=== PATIENT | female | born 1985 | race Caucasian/White ===

== ENCOUNTER 2018-12-02 06:55 | Emergency (ER) | payer OTHER, SELFPAY ==
[2018-12-02 06:56] VITALS: BP 152/96; PULSE 89; RESP 20; TEMP 36.7; O2SAT 98; BMI 40.0
--- NOTE | 2018-12-02 07:07 | ED.VISSUMM ---
- ER Visit Summary Date of Service: 12/02/18 Chief Complaint: Dental pain History of Present Illness: The patient is a 33 F with pain in her left maxillary molar for the past couple days. Worse last night. Denies swelling. Denies fevers, nausea, or systemic symptoms. She does have a dentist but has not been seen for a few months. She is taking ibuprofen with minimal relief. Physical Examination: Afebrile and vital signs unremarkable. Tenderness to palpation to the left maxillary third molar and gum tissue. Inspection is unremarkable. No swelling or abscess. No trismus. No tongue elevation. Airway intact. No lymphadenopathy. No meningeal signs. Skin appears normal. Cranial nerves normal. Test Results: As above Emergency Department Course and Treatment: We will treat with Samy Mccray Motrin. I checked her OARRS, and will prescribe a short course of Percocet for breakthrough pain. Call dental today for follow-up. Treatment Plan: As above Disposition: Discharge Impression: 1. Dental pain This note was generated with [employer] dictation software. It may contain incorrect words, spelling, and punctuation that were not noted in review of the chart prior to signing ED Disposition - Plan for ED Patient: Chief Complaint: Dental Referrals: NOT,DEFINED [Primary Care Provider] -
--- NOTE | 2018-12-02 07:09 | ED.DEP ---
ED Disposition - Plan for ED Patient: Chief Complaint: Dental Instructions: ED Tooth Pain Prescriptions: Oxycodone HCl/Acetaminophen [Percocet 5/325] 1 tab PO Q6H PRN PRN 2 Days #8 tab PRN Reason: Pain Penicillin V Potassium 500 mg PO 4X/DAY #40 tab Additional Instructions: call your dentist today for follow up
[2018-12-02] MEDS: Penicillin Vk 250 MG Tablet 500 MG PO (07:29)
== END 2018-12-02 07:31 | disposition home or self-care (01) ==
PROVIDERS: Emergency Provider Emergency Medicine
DX: K08.89 Other specified disorders of teeth and supporting structures (principal); Z72.0 Tobacco use; F31.9 Bipolar disorder, unspecified
CPT/HCPCS: 99283

== ENCOUNTER 2019-03-17 08:41 | Emergency (ER) | payer OTHER, SELFPAY ==
[2019-03-17 08:41] VITALS: BP 122/68; PULSE 111; RESP 16; TEMP 37.1; O2SAT 98; BMI 41.5
--- NOTE | 2019-03-17 08:57 | ED.DCSUM_ITS ---
- ER Visit Summary Date of Service: 03/17/19 Chief Complaint: Sore throat History of Present Illness: The patient is a 33 F who presents with a sore throat that has been getting worse over the past 2 days. Patient states she has had a fever at home of 101.5. Patient denies any cough. Patient states her p ain is worse with swallowing, eating, and drinking. Patient describes her pain is sharp. Patient also admits to headache. Patient also admits to myalgias, nausea and diarrhea. Patient denies any vomiting. Patient states she went to an urgent care yesterday and had rapid strep and rapid flu swabs which were negative. Physical Examination: Vital signs are stable except for mild tachycardia of 111. Patient is afebrile here. Patient is in no acute distress. Oral mucosa is pink and moist. Oropharynx shows tonsillar erythema and exudate. Neck is supple. Trachea is midline. There is tender anterior cervical lymphadenopathy. Heart was regular rate and rhythm. Lungs are clear and equal bilaterally. Cranial nerves II through XII are intact. There are no focal motor or sensory deficits noted. Test Results: Patient met 3 out of 4 Centor criteria, therefore a rapid strep was obtained. This was negative. A CBC, basic metabolic profile, and CT scan of the soft tissue neck with IV contrast was obtained. CBC did show a leukocytosis of 16.3 with 83.9% neutrophils and an absolute neutrophil count of 13.7. Basic metabolic profile was normal. CT scan of the soft tissue neck was obtained. There is no abscess noted. There is some swelling of the area epiglottic folds but no airway compromise or epiglottitis. Emergency Department Course and Treatment: Patient was given IV Decadron. Given the leukocytosis and left shift, we will cover the patient with amoxicillin. Patient was advised that this could still be a viral etiology and that the antibiotics may not improve her symptoms. Patient was instructed to continue Tylenol and ibuprofen as needed for any pain. Patient was given a prescription for a short course of prednisone as well. Patient was instructed to follow-up with her primary care physician in 5-7 days. Patient understood and was agreeable with the plan. All questions were answered. Disposition: Discharge home Impression: Pharyngitis This note was generated with [employer] dictation software. It may contain incorrect words, spelling, and punctuation that were not noted in review of the chart prior to signing ED Disposition - Plan for ED Patient: Disposition: Home or Assisted Living Diagnosis: Pharyngitis Instructions: ED Strep Pharyngitis Poss Prescriptions: predniSONE tablet 60 mg PO DAILY #15 tab Amoxicillin 500 mg PO TID #30 tab Referrals: Care Physician,No Primary [Primary Care Provider] -
--- NOTE | 2019-03-17 09:43 | CT_ITS ---
STUDY: CT SOFT TISSUE NECK WITH CONTRAST REASON FOR EXAM: Female, 33 years old. History of sore throat for 2 days. RADIATION DOSAGE (If Supplied By Facility): CTDIvol = ( 22.79 ) mGy, DLP = ( 631.73 ) mGycm TECHNIQUE: The patient was scanned in a multi-detector CT scanner. High resolution transaxial imaging was performed following intravenous administration of 75CC IV Isovue 300. Sagittal and coronal images were reconstructed. Individualized dose optimization techniques were used for this CT. COMPARISON: None. FINDINGS: Normal bilateral parotid glands. Normal bilateral cement based materials pump tender spaces. Normal bilateral parapharyngeal spaces. Normal bilateral carotid spaces. Normal bilateral sublingual and submandibular glands and spaces. Normal visualized nasopharynx. Normal retropharyngeal space. Normal perivertebral space. Normal visualized bilateral faucial tonsils. There is a mildly lobulated prominence of the tongue base, but without a discrete mass, suggestive of lymphoid hyperplasia. Mucosal disease cannot be excluded, and direct visualization is recommended. The visualized cervical lymph nodes (levels I-) are within normal size limits, and maintain normal morphology. There is no demonstrated solid or cystic mass lesion. There is no abnormal contrast enhancement. Normal epiglottis, bilateral vallecula and hypopharynx. The pre-epiglottic and paraglottic adipose spaces are normal. There is a thickening of the aryepiglottic folds more prominent on the left side measuring 2 cm x 2.1 cm. Normal subglottic trachea. Normal bilateral lobes of the thyroid gland. Normal visualized pulmonary apices. Normal visualized paranasal sinuses. Normal visualized cervical spine. CT/Soft Tissue Neck WITH Contrast IMPRESSION: Thickening of the aryepiglottic folds more prominent on the left side with a 2 cm x 2.1 cm nodular thickening. Prominence of the lymph tissue at the base of the tongue. Electronically Signed: Adan Ramsay, at 11:12 EDT , Service support ,
[2019-03-17 10:17] LABS: Anion Gap 6 (5-15); BUN 12 mg/dL (7-18); BUN/Creat Ratio 16.2 RATIO (10-20); Calcium,Total 8.6 mg/dL (8.5-10.1); Chloride 106 mmol/L (98-107); Creatinine, Serum 0.74 mg/dL (0.55-1.02); EST Glomerular Filtration Rate 95 mL/min (>60); Est Glom Filt Rate - Afr Amer 115 mL/min (>60); Estimated Creatinine Clearance 95.48 ml/min; Glucose 97 mg/dL (74-106); Potassium 3.8 mmol/L (3.5-5.1); Sodium Level 138 mmol/L (136-145)
[2019-03-17 10:24] LABS: Absolute Lymphocyte Count 1.42 X10^3/ul (0.83-4.51); Absolute Neutrophil Count 13.7 X10^3/uL (2.0-7.7); Basophil# 0.02 X10^3/uL; Basophil% 0.1 % (0-1); Eosinophil# 0.03 X10^3/uL; Eosinophils% 0.2 % (0-5); Hematocrit 36.4 % (37-47); Hemoglobin 12.1 g/dl (12.0-15.0); Lymphocyte # 1.42 X10^3/ul (4.0); Lymphocyte % 8.7 % (19-41); Mean Corp Hgb Conc 33.2 g/gl (32-36); Mean Corpuscular Volume 90.1 fL (81-99); Mean Platelet Vol. 10.2 fl (6.2-12.0); Monocyte# 1.12 X10^3/uL; Monocyte% 6.9 % (0-10); Neutrophil # 13.71 X10^3/uL (2.7-7.7); Neutrophil % 83.9 % (47-70); Platelet Count 236 K/mm3 (150-450); RBC Distribution Width CV 14.1 % (11.6-14.6); RBC Distribution Width SD 46.6 fl (35.1-43.9); Red Blood Count 4.04 M/mm3 (4.2-5.4); White Blood Count 16.3 K/mm3 (4.4-11.0)
[2019-03-17 10:25] LABS: POSITIVE COUNT NO; POSITIVE DIFFERENTIAL NO; POSITIVE MORPHOLOGY NO
[2019-03-17 10:57] VITALS: BP 99/63; PULSE 93; RESP 12; O2SAT 97
[2019-03-17 12:00] VITALS: BP 107/89; PULSE 84; RESP 12; RESP 14; O2SAT 99
== END 2019-03-17 12:04 | disposition home or self-care (01) ==
PROVIDERS: Emergency Provider Emergency Medicine
DX: J02.9 Acute pharyngitis, unspecified (principal); R51 Headache; R11.0 Nausea; R19.7 Diarrhea, unspecified; R50.9 Fever, unspecified; F17.210 Nicotine dependence, cigarettes, uncomplicated
CPT/HCPCS: 70491; 80048; 85025; 87880; 96374; 99284; Q9967; A4216

== ENCOUNTER 2019-04-27 04:14 | Emergency (ER) | payer OTHER, SELFPAY ==
[2019-04-27 04:16] VITALS: BP 133/91; PULSE 74; PULSE 75; RESP 14; RESP 16; TEMP 36.6; TEMP 36.7; O2SAT 98; BMI 40.7
--- NOTE | 2019-04-27 04:23 | ED.DEP ---
ED Disposition - Plan for ED Patient: Instructions: ED Tooth Pain Prescriptions: Naproxen [Naprosyn] 500 mg PO BID PRN #20 tablet Penicillin V Potassium 500 mg PO 4X/DAY #40 tablet Referrals: [facility] Doctor,Out of [Primary Care Provider] -
--- NOTE | 2019-04-27 04:27 | ED.VISSUMM ---
- ER Visit Summary Date of Service: 04/27/19 Chief Complaint: Dental pain History of Present Illness: The patient is a 34 F presenting with dental pain. She states this started a few days ago and worsened yesterday. She has been taking ibuprofen at home. She does not currently have a dentist. She denies fever. She states she it has felt like she has had intermittent swelling. Denies other complaints Physical Examination: Vitals are stable. Patient is afebrile. Alert no acute distress. HEENT exam left upper molar tenderness. No surrounding fluctuance. No sublingual edema Neck is supple. Lungs are clear and equal bilaterally. Heart is regular rate and rhythm. Skin is warm and dry. Remainder of exam is unremarkable. Emergency Department Course and Treatment: Patient was given [place] x1 in the ED. She was given prescriptions for penicillin and Naprosyn. Advised to follow-up with a dentist. She is given a dental referral list. Advised to return to ED for worsening complaints. Disposition: Discharge home Impression: Odontalgia This note was generated with [employer] dictation software. It may contain incorrect words, spelling, and punctuation that were not noted in review of the chart prior to signing ED Disposition - Plan for ED Patient: Instructions: ED Tooth Pain Prescriptions: Naproxen [Naprosyn] 500 mg PO BID PRN #20 tablet Penicillin V Potassium 500 mg PO 4X/DAY #40 tablet Referrals: Meera Moody,Out of [Primary Care Provider] -
[2019-04-27 04:28] VITALS: BP 122/74; PULSE 70; RESP 15; O2SAT 98
[2019-04-27] MEDS: Penicillin Vk 250 MG Tablet 500 MG PO (04:33)
[2019-04-27] MEDS: HYDROcodone Bitartrate/Apap 5/325 Tablet PO (04:33)
== END 2019-04-27 04:35 | disposition home or self-care (01) ==
PROVIDERS: Emergency Provider Emergency Medicine
DX: K08.89 Other specified disorders of teeth and supporting structures (principal); Z72.0 Tobacco use
CPT/HCPCS: 99283

== ENCOUNTER 2021-03-26 20:09 | Observation (INO) | payer OTHER, SELFPAY ==
[2021-03-26] VITALS (9 sets, daily range): BP systolic 90–123; BP diastolic 59–73; PULSE 60–83; RESP 12–22; TEMP 35.9–36.8; O2SAT 95–100; BMI 42.0; BMI 41.7
--- NOTE | 2021-03-26 20:22 | EKG12_ITS ---
Test Reason : REPEAT X 2 Blood Pressure : / mmHG Vent. Rate : 066 BPM Atrial Rate : 066 BPM P-R Int : 152 ms QRS Dur : 088 ms QT Int : 442 ms P-R-T Axes : 059 023 070 degrees QTc Int : 463 ms Normal sinus rhythm Nonspecific T wave abnormality Prolonged QT Abnormal ECG Confirmed by REID DUMONT, RENETTA ([id number]), map editor ARSH LLANOS ([id number]) on 03/28/2021 9:14:06 AM Referred By: VARGAS Confirmed By:RENETTA MATHEWS MD
[2021-03-26 20:29] LABS: Absolute Lymphocyte Count 3.67 X10^3/uL (0.83-4.51); Absolute Neutrophil Count 6.7 X10^3/uL (2.0-7.7); Basophil# 0.04 X10^3/uL; Basophil% 0.4 % (0-1); Eosinophil# 0.22 X10^3/uL; Eosinophils% 1.9 % (0-5); Hematocrit 35.8 % (37-47); Hemoglobin 11.9 g/dL (12.0-15.0); Lymphocyte # 3.67 X10^3/ul (0.83-4.51); Lymphocyte % 32.4 % (19-41); Mean Corp Hgb Conc 33.2 g/dL (32-36); Mean Corpuscular Hgb 30.8 pg (27.0-32.0); Mean Corpuscular Volume 92.7 fL (81-99); Mean Platelet Vol. 10.1 fl (6.2-12.0); Monocyte# 0.63 X10^3/uL; Monocyte% 5.6 % (0-10); NRBC Flagged by Analyzer 0 % (0-5); Neutrophil # 6.73 X10^3/uL (2.7-7.7); Neutrophil % 59.4 % (47-70); Platelet Count 315 K/mm3 (150-450); RBC Distribution Width CV 14.2 % (11.6-14.6); RBC Distribution Width SD 48.3 fl (35.1-43.9); Red Blood Count 3.86 M/mm3 (4.2-5.4); White Blood Count 11.3 K/mm3 (4.4-11.0)
--- NOTE | 2021-03-26 20:30 | ED.VIS.CHEST ---
HPI History of Present Illness Chief Complaint: Chest Pain PFSH PFSH Home Medications aripiprazole 10 mg PO DAILY 12/02/18 [History Last Taken Unknown] citalopram 30 mg PO DAILY 12/02/18 [History Last Taken Unknown] penicillin V potassium 500 mg PO 4X/DAY #40 tab 12/02/18 [Rx Last Taken Unknown] amoxicillin 500 mg PO TID #30 tab 03/17/19 [Rx Last Taken Unknown] prednisone 60 mg PO DAILY #15 tab 03/17/19 [Rx Last Taken Unknown] naproxen 500 mg PO BID PRN #20 tab 04/27/19 [Rx Last Taken Unknown] penicillin V potassium 500 mg PO 4X/DAY #40 tab 04/27/19 [Rx Last Taken Unknown] Allergy/AdvReac Type Severity Reaction Status Date / Time ciprofloxacin [From Cipro] Allergy Rash Verified 03/26/21 20:34 lamotrigine [From Lamictal] Allergy Rash Verified 03/26/21 20:34 Social History Smoking Status: Current every day smoker ROS ROS ED Constitutional Constitutional ED: Denies fever(s) Eyes Eyes: Reports none ENT ENT ED: Denies ear pain Cardiovascular Cardiovascular: Reports as per HPI and other Respiratory/Chest Respiratory/Chest: Reports other; Denies sputum Gastrointestinal Gastrointestinal: Denies abdominal pain Genitourinary Genitourinary ED: Denies dysuria Musculoskeletal Musculoskeletal: Denies myalgias Integumentary Denies rash Neurologic Neurologic: Denies headache(s) Psychiatric Psychiatric: Denies depression Endocrine Endocrinology: Denies polyuria Hematologic/Lymphatic Hematologic/Lymphatic: Denies easy bruising Allergic/Immunologic Allergic/Immunologic ED: Denies mouth swelling, tongue swelling or urticaria EXAM Physical Exam Const Vital Signs: 03/26/21 20:10 03/26/21 20:22 03/26/21 20:26 Temperature 97.2 F L Temperature Source Temporal Pulse Rate 83 77 Respiratory Rate 16 16 Blood Pressure 123/73 H 105/71 Blood Pressure Mean 89 82 Pulse Ox 97 100 Oxygen Delivery Method Room Air Room Air Room Air 03/26/21 21:09 03/26/21 21:20 Temperature Temperature Source Pulse Rate 71 71 Respiratory Rate 22 H Blood Pressure 101/59 L 101/59 L Blood Pressure Mean 73 Pulse Ox 95 Oxygen Delivery Method Room Air Positive well nourished and well developed General Appearance ED: well developed HEENT normocephalic and atraumatic Eyes PERRL and EOMs intact bilaterally Neck no lymphadenopathy, supple and no JVD Chest Wall inspection of chest normal and palpation of chest normal Chest Narrative: No acute normality seen on chest wall exam. No reproducible pain. No crepitus. No signs of trauma. Resp normal respiratory effort and clear to auscultation bilaterally Cardio regular rate and regular rhythm GI normal to inspection, nondistended, normoactive bowel sounds, soft to palpation, non-tender, non-distended and no masses Back/Spine no CVA tenderness Extremity normal to inspection Extremity Narrative: Nontender. No calf tenderness. No cords. No edema. General Extremety ED: Negative for edema, pulses abnormal or tenderness General Extremity: Negative for edema or pulses abnormal Neuro oriented x3 and CN's II-XII intact bilaterally Sensorium / Orientation: awake and alert Motor Exam: strength 5/5 throughout Psych mental status grossly normal Skin no rashes or lesions noted Heart Score History: Moderately Suspicious ECG: Normal Age: </= 45 years Risk Factors: 1 or 2 Risk Factors Troponin: </= Normal Limit Score: 2 MDM MDM MDM Narrative Medical decision making narrative: Cardiac disease. She is a smoker. No recent exertional chest pain or shortness of breath. Today around 3:30 in the afternoon she awoke with midsternal chest pain. Radiating to the right. No shortness of breath but she does have worse pain with a deep breath. She is never had a DVT nor PE. No risk factors. Father had cardiac disease and prior pulmonary emboli. She is on no control. No recent travel, surgery or immobilization. No calf pain or swelling. No hemoptysis. CBC unremarkable. BMP normal. Normal troponin. D-dimer normal. Chest x-ray 1 view interpreted by myself. normal cardiac silhouette and no infiltrate. No pneumothorax. Lab Data Attestation: I reviewed the patient's lab results. Labs: Laboratory Results - last 24 hr 03/26/21 03/26/21 03/26/21 20:20 20:20 20:20 WBC 11.3 H RBC 3.86 L Hgb 11.9 L Hct 35.8 L MCV 92.7 MCH 30.8 MCHC 33.2 RDW Std Deviation 48.3 H RDW Coeff of Jhonathan 14.2 Plt Count 315 MPV 10.1 Immature Gran % (Auto) 0.300 Neut % (Auto) 59.4 Lymph % (Auto) 32.4 [place] % (Auto) 5.6 Eos % (Auto) 1.9 Baso % (Auto) 0.4 Absolute Neuts (auto) 6.7 Absolute Lymphs (auto) 3.67 Nucleated RBC % 0 D-Dimer Quant (PE/DVT) 0.35 Sodium 138 Potassium 3.6 Chloride 110 H Carbon Dioxide 22.0 Anion Gap 6 BUN 15 Creatinine 0.84 Estim Creat Clear Calc 79.18 Est GFR (MDRD) Af Amer 97 Est GFR (MDRD) Non-Af 80 BUN/Creatinine Ratio 17.8 Glucose 96 Calcium 8.7 Troponin I < 0.015 Radiography Chest X-Ray - ED: 1 View, Read by ED Physician, Normal, Heart, Lungs, Mediastinum, Bony Structures and No Acute Disease Diagnostic Testing: Radiology Impression Chest X-Ray 03/26/21 20:43 IMPRESSION: Normal x-ray examination of the chest. Electronically Signed: Rinku Sanchez DO at 21:38 EDT Tel [phone], Service support , EKG Repeat EKG : Attestation: I personally reviewed and interpreted this EKG as follows: Interpretation: Sinus Rhythm and No Acute Injury Pattern Comments: Second EKG was unchanged first. Again no signs of acute KS nor ischemia. Prior: Unchanged EKG # 3: Attestation: I personally reviewed and interpreted this EKG as follows: Interpretation: Sinus Rhythm and No Acute Injury Pattern Comments: Normal sinus rhythm rate of 66. Treatment and Re-Evaluation Comments:: Patient was given nitro paste and her pain resolved. The patient's pain being nonreproducible and improving with nitroglycerin in spite of negative work-up I will speak to the hospitalist about observation status admission for further cardiac evaluation. Discharge Plan Triage Chief Complaint: Chest Pain ED Provider: Dave Rodgers Dx/Rx/DC Orders Prescriptions: No Action citalopram 20 MG tablet 30 mg PO DAILY RF: 0 aripiprazole 10 MG tablet 10 mg PO DAILY RF: 0 penicillin V potassium 500 MG tablet 500 mg PO 4X/DAY Qty: 40 RF: 0 prednisone 20 MG tablet 60 mg PO DAILY Qty: 15 RF: 0 amoxicillin 500 MG tablet 500 mg PO TID Qty: 30 RF: 0 penicillin V potassium 500 MG tablet 500 mg PO 4X/DAY Qty: 40 RF: 0 naproxen 500 MG tablet 500 mg PO BID PRN Qty: 20 RF: 0 Primary Care Provider: Isrrael Nunes
[2021-03-26 20:41] LABS: D-Dimer Quantitative (DVT/PE) 0.35 FEU/ug/m (0.27-0.49)
--- NOTE | 2021-03-26 20:43 | RAD_ITS ---
STUDY: X-RAY CHEST REASON FOR EXAM: Female, 35 years old. Chest pain TECHNIQUE: Frontal view COMPARISON: None. FINDINGS: The lungs are clear and expanded. There is no demonstrated pleural abnormality. Normal size heart. Normal mediastinum and fiorella. Normal visualized pulmonary arteries. Normal visualized aortic arch and descending thoracic aorta. Normal visualized thoracic spine. Normal visualized ribs, clavicles, and shoulders. There is no demonstrated abnormality of the visualized soft tissue structures of the upper abdomen. RAD/Chest 1 View (Portable) IMPRESSION: Normal x-ray examination of the chest. Electronically Signed: Rinku Sanchez DO at 21:38 EDT Tel [phone], Service support ,
[2021-03-26 20:46] LABS: Anion Gap 6 (5-15); BUN 15 mg/dL (7-18); BUN/Creat Ratio 17.8 RATIO (10-20); Calcium,Total 8.7 mg/dL (8.5-10.1); Chloride 110 mmol/L (98-107); Creatinine, Serum 0.84 mg/dL (0.55-1.02); EST Glomerular Filtration Rate 80 mL/min (>60); Est Glom Filt Rate - Afr Amer 97 mL/min (>60); Estimated Creatinine Clearance 79.18 ml/min; Glucose 96 mg/dL (74-106); Potassium 3.6 mmol/L (3.5-5.1); Sodium Level 138 mmol/L (136-145)
[2021-03-26] MEDS: Nitroglycerin Oint 1 INCH PACKET TD (21:20)
--- NOTE | 2021-03-26 22:25 | EKG12_ITS ---
Test Reason : REPEAT Blood Pressure : / mmHG Vent. Rate : 069 BPM Atrial Rate : 069 BPM P-R Int : 148 ms QRS Dur : 088 ms QT Int : 440 ms P-R-T Axes : 056 024 069 degrees QTc Int : 471 ms Normal sinus rhythm with sinus arrhythmia Nonspecific T wave abnormality Prolonged QT Abnormal ECG Confirmed by REID DUMONT, RENETTA ([id number]), video editor ARSH LLANOS ([id number]) on 03/28/2021 9:14:22 AM Referred By: VARGAS Confirmed By:RENETTA MATHEWS MD
--- NOTE | 2021-03-26 22:55 | PCM.HP.STD ---
HPI - General General Date of Admission: 03/26/21 HPI Narrative MICHAEL CAMPOS, is a 35 F with a significant history of depression and anxiety who presents to the emergency department with chest pain that was present when she woke up in the afternoon of the day of presentation. The chest pain started few hours before presentation. The chest pain is midsternal and it radiates to her right shoulder. Patient took 4 baby aspirin at home before coming to emergency department. Patient denies any aggravating factors to the pain. Chest pain was relieved somewhat with nitroglycerin paste given at the emergency department. She describes her chest pain as pressure. The chest pain is constant. Severity is moderate. Associated symptoms is nausea without vomiting. 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 [facility] Home Medications citalopram 40 mg PO DAILY 12/02/18 [History Last Taken Unknown] nitrofurantoin monohyd/m-cryst 100 mg PO BID 03/26/21 [History Last Taken Unknown] spironolactone 50 mg PO DAILY 03/26/21 [History Last Taken Unknown] topiramate 50 mg PO BID 03/26/21 [History Last Taken Unknown] Allergy/AdvReac Type Severity Reaction Status Date / Time ciprofloxacin [From Cipro] Allergy Rash Verified 03/26/21 20:34 lamotrigine [From Lamictal] Allergy Rash Verified 03/26/21 20:34 Family History Father Heart disease Grandfather Heart disease Surgical History Tubal ligation status Social History Smoking Status: Current every day smoker ROS Constitutional Constitutional: Denies chills, fatigue, fever(s), malaise or weakness Eyes Eyes: Denies change in vision or discharge from eye(s) ENT HEENT: Denies ear pain or headache(s) Cardiovascular Cardiovascular: Reports chest pain; Denies lightheadedness, orthopnea, palpitations or paroxysmal nocturnal dyspnea Respiratory/Chest Respiratory/Chest: Denies cough or dyspnea Gastrointestinal Gastrointestinal: Denies abdominal pain, constipation or diarrhea Genitourinary Genitourinary: Denies burning urination, urinary frequency or urinary hesitancy Musculoskeletal Musculoskeletal: Denies arthralgias, back pain or joint pain Neurologic Neurologic: Denies confusion or focal weakness Psychiatric Psychiatric: Reports anxiety; Denies depression Endocrine Endocrinology: Denies cold intolerance or excessive sweating Hematologic/Lymphatic Hematologic/Lymphatic: Denies easy bleeding or easy bruising Vital Signs Vital Signs Vital Signs: 03/26/21 20:10 03/26/21 20:22 03/26/21 20:26 Temperature 97.2 F L Temperature Source Temporal Pulse Rate 83 77 Respiratory Rate 16 16 Blood Pressure 123/73 H 105/71 Blood Pressure Mean 89 82 Pulse Ox 97 100 Oxygen Delivery Method Room Air Room Air Room Air 03/26/21 21:09 03/26/21 21:20 03/26/21 22:29 Temperature Temperature Source Pulse Rate 71 71 68 Respiratory Rate 22 H 16 Blood Pressure 101/59 L 101/59 L 90/63 Blood Pressure Mean 73 72 Pulse Ox 95 99 Oxygen Delivery Method Room Air Room Air Physical Exam Const alert and oriented x3 General Appearance: cooperative HEENT normocephalic and head/scalp atraumatic Eyes PERRL and EOMs intact bilaterally Neck no lymphadenopathy and supple Resp normal respiratory effort, no use of accessory muscles and clear to auscultation bilaterally Cardio regular rate, regular rhythm, S1 normal heart sound, S2 normal heart sound, no murmurs, no rub, no gallops and no clicks Peripheral Pulses: pulses 2+ throughout GI normal to inspection, nondistended, normoactive bowel sounds, soft to palpation, non-tender and non-distended Extremity normal to inspection and full ROM Peripheral Pulses: Yes pulses 2+ throughout Skin no rashes or lesions noted, no wounds and skin turgor normal Neuro oriented x3 Sensorium / Orientation: awake and alert Psych affect normal Lab / Micro Data Result Diagrams: 03/26/21 20:20 03/26/21 20:20 Labs: Laboratory Results - last 24 hr 03/26/21 03/26/21 03/26/21 20:20 20:20 20:20 WBC 11.3 H RBC 3.86 L Hgb 11.9 L Hct 35.8 L MCV 92.7 MCH 30.8 MCHC 33.2 RDW Std Deviation 48.3 H RDW Coeff of Jhonathan 14.2 Plt Count 315 MPV 10.1 Immature Gran % (Auto) 0.300 Neut % (Auto) 59.4 Lymph % (Auto) 32.4 [place] % (Auto) 5.6 Eos % (Auto) 1.9 Baso % (Auto) 0.4 Absolute Neuts (auto) 6.7 Absolute Lymphs (auto) 3.67 Nucleated RBC % 0 D-Dimer Quant (PE/DVT) 0.35 Sodium 138 Potassium 3.6 Chloride 110 H Carbon Dioxide 22.0 Anion Gap 6 BUN 15 Creatinine 0.84 Estim Creat Clear Calc 79.18 Est GFR (MDRD) Af Amer 97 Est GFR (MDRD) Non-Af 80 BUN/Creatinine Ratio 17.8 Glucose 96 Calcium 8.7 Troponin I < 0.015 Radiology Impression Chest X-Ray 03/26/21 20:43 IMPRESSION: Normal x-ray examination of the chest. Electronically Signed: Rinku Sanchez DO at 21:38 EDT Tel [phone], Service support , Assessment & Plan Assessment/Plan (1) Chest pain: Status: Acute Code(s): R07.9 - Chest pain, unspecified Plan: Place on a monitored bed at PCU Actual CXR image was independently visualized. No acute cardiopulmonary process was noted. Multiple EKGs were done at the emergency department because of persistent chest pain. Her EKG shows sinus rhythm with no ST or T wave abnormalities. ASA 81 mg p.o. daily ordered Nitroglycerin paste placed at the emergency department; and continued; remove in a.m. prior to stress test. Morphine as needed for pain ordered We will check lipid panel. Initial troponin was negative. Serial cardiac enzymes ordered Stat EKG as needed for chest pain (2) Obesity: Status: Acute Code(s): E66.9 - Obesity, unspecified Plan: BMI of 41.7 kg/m?. Complicates care. Lifestyle medication recommended. (3) Tobacco abuse: Status: Acute Code(s): Z72.0 - Tobacco use Plan: Counselled OBS E&M: [id number] Initial observation care L2
[2021-03-27 02:57] VITALS: PULSE 71
[2021-03-27 03:29] LABS: Cholesterol 202 mg/dL (200); High Density Lipoprotein 32 mg/dL; Triglycerides 146 mg/dL; Very Low Density Lipoprotein 29 mg/dL (5-40)
--- NOTE | 2021-03-27 04:54 | EKG12_ITS ---
Test Reason : AM EKG Blood Pressure : / mmHG Vent. Rate : 063 BPM Atrial Rate : 063 BPM P-R Int : 150 ms QRS Dur : 088 ms QT Int : 448 ms P-R-T Axes : 064 033 081 degrees QTc Int : 458 ms Normal sinus rhythm Nonspecific T wave abnormality Abnormal ECG Confirmed by REID DUMONT, RENETTA ([id number]), editorial director ARSH LLANOS ([id number]) on 03/28/2021 9:23:04 AM Referred By: FELIPA Confirmed By:RENETTA MATHEWS MD
[2021-03-27 05:30] VITALS: BP 89/52; PULSE 75; RESP 16; TEMP 36.7; O2SAT 96
[2021-03-27] MEDS: Aspirin E.C. 81 MG Tablet PO (05:53)
[2021-03-27] MEDS: 0.9% Saline Lock 10 ML Syringe IV (05:53)
--- NOTE | 2021-03-27 05:55 | EKG12_ITS ---
Test Reason : CP Blood Pressure : / mmHG Vent. Rate : 074 BPM Atrial Rate : 074 BPM P-R Int : 140 ms QRS Dur : 086 ms QT Int : 396 ms P-R-T Axes : 060 010 057 degrees QTc Int : 439 ms Normal sinus rhythm Normal ECG Confirmed by REID DUMONT, RENETTA ([id number]), industrial editor ARSH LLANOS ([id number]) on 03/28/2021 9:14:34 AM Referred By: VARGAS Confirmed By:RENETTA MATHEWS MD
[2021-03-27 06:52] VITALS: O2SAT 96
[2021-03-27 07:00] VITALS: PULSE 67
[2021-03-27 07:56] VITALS: BP 89/55; PULSE 65; RESP 18; TEMP 36.8; O2SAT 98
[2021-03-27] MEDS: Topiramate 50 MG Tablet PO (10:10)
[2021-03-27] MEDS: Nitrofurantoin Macrocrystals 100 MG Capsule PO (10:10)
[2021-03-27] MEDS: Citalopram 40 MG TABLET PO (10:10)
--- NOTE | 2021-03-27 10:25 | STRESSREP ---
Stress Test Report Date: 03-27-2021 Procedure: Exercise tolerance test/imaging study Indications: Chest pain Consent: Per the patient Procedure: The patient exercised on a Darryn protocol for 8 minutes completing Stage II and 2 minutes of Stage III achieving a peak heart rate of 150 bpm (81% predicted maximal heart rate) with a peak blood pressure 142/66 mmHg and a peak MET capacity of 10 METs. The baseline ECG demonstrated sinus rhythm. The peak exercise ECG demonstrated somatic/motion artifact with beat to beat ST segment variability with approximately 0.5 to 1.0 mm of horizontal/upsloping ST segment depression in leads II, III, aVF and approximately [address] segment depression in leads V4 through V6 with resolution towards baseline in recovery. There were no cardiac dysrhythmias pretest, during exercise, or recovery. The functional capacity was considered good. There was no complaint of chest discomfort during exercise or recovery. The examination was discontinued secondary to dyspnea. Impression: 1. Technically adequate (percent predicted maximal heart rate greater than 85%) exercise tolerance test 2. Peak exercise ECG with somatic/motion artifact with beat to beat ST segment variability with approximately 0.5 to 1.0 mm of horizontal/upsloping ST segment depression in leads II, III, aVF and approximately [address] segment depression in leads V4 through V6 with resolution towards baseline in recovery 3. There were no cardiac dysrhythmias pretest, during exercise, or recovery 4. Nuclear images pending Myocardial perfusion imaging study: Technique: The patient was injected with 14.3 mCi of technetium 99m Cardiolite and subsequently rest SPECT Cardiolite nuclear imaging was obtained in the horizontal long, vertical long, and short axis views. The patient exercised on a Darryn protocol for 8 minutes completing Stage II and 2 minutes of Stage III achieving a peak heart rate of 150 bpm (81% predicted maximal heart rate) with a peak blood pressure 142/66 mmHg and a peak MET capacity of 10 METs. The patient was injected with 42.8 mCi of technetium 99m Cardiolite and subsequently stress SPECT Cardiolite nuclear imaging was obtained in the horizontal long, vertical long, and short axis views. A gated Cardiolite study at peak stress was obtained. Interpretation: Rest and stress SPECT Cardiolite nuclear imaging status post realignment, normalization, and attenuation correction, demonstrates the appearance of body motion during image acquisition and status post stress the appearance of an area of diminished myocardial perfusion/tracer uptake in portions of the mid towards distal anterior segments. There is end systolic thickening and brightening. The gated Cardiolite study demonstrates myocardial thickening and inward wall motion. The reported LVEF is 73%. Impression: 1. Rest and stress SPECT Cardiolite nuclear imaging demonstrate the appearance of body motion during image acquisition and status post stress the appearance of diminished myocardial perfusion/tracer uptake in portions of the mid towards distal anterior segments potentially compatible with shifting soft tissue attenuation/artifact, however, an area of stress-induced myocardial ischemia cannot be excluded. 2. The gated Cardiolite study reports an LVEF of 73%. This note was generated with [employer] software. It may contain incorrect words, spelling, and punctuation that were not noted in checking the note before signing.
--- NOTE | 2021-03-27 12:35 | CON.PCM.CA_ITS ---
Assessment & Plan Assessment/Plan (1) Chest pain: Status: Acute Code(s): R07.9 - Chest pain, unspecified Qualifiers: Chest pain type: intercostal pain Qualified Code(s): R07.82 - Intercostal pain (2) Anxiety: Status: Acute Code(s): F41.9 - Anxiety disorder, unspecified (3) Tobacco abuse: Status: Acute Code(s): Z72.0 - Tobacco use (4) Obesity: Status: Acute Code(s): E66.9 - Obesity, unspecified Qualifiers: Obesity classification: adult class 3 (BMI >= 40) Serious obesity comorbidity presence: without serious comorbidity Body mass index: BMI 40.0- 44.9 Obesity type: unspecified obesity type Qualified Code(s): E66.01 - Morbid (severe) obesity due to excess calories; Z68.41 - Body mass index [BMI]40.0- 44.9, adult Plan: 35 year-old patient admitted with symptoms of chest pain, with some radiation to the right shoulder, described as midsternal, she took 4 baby aspirin at home for coming to the emergency department. 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 There is no prior cardiac history. Patient risk factors she has history of tobacco abuse, obesity, and she was on citalopram for history of anxiety disorders. Cardiac work-up with EKG, serial cardiac markers and nuclear stress test was performed Nuclear stress test patient walked on the treadmill for 8 minutes with no symptoms of chest pain she reached her target heart rate and there was no significant ST depression in the EKG attenuation artifact was noted in the nuclear images, ejection fraction is within normal 73%. Her symptoms of chest pain resolved she did not have any further episodes Recommendation and plan; Advised the patient to walk on the PCU floor and if she had no further episode of chest pain she can be discharged home with the plan of follow-up with the cardiology Dr. Saez as an outpatient to discuss further plan. HPI Consult Data Date of Consult: 03/27/21 HPI Narrative HPI Narrative: MICHAEL CAMPOS, is a 35 F who presents with retrosternal chest pain with some radiation to the right shoulder no associated symptoms in particular no dizziness no syncope no palpitation or shortness of breath and she does not have any lower extremity swelling. [facility] Home Medications citalopram 40 mg PO DAILY 12/02/18 [History Last Taken 03/26/21] nitrofurantoin monohyd/m-cryst 100 mg PO BID 03/26/21 [History Last Taken 03/26/21] spironolactone 50 mg PO DAILY 03/26/21 [History Last Taken 03/26/21] topiramate 50 mg PO BID 03/26/21 [History Last Taken 03/26/21] Allergy/AdvReac Type Severity Reaction Status Date / Time ciprofloxacin [From Cipro] Allergy Rash Verified 03/26/21 20:34 lamotrigine [From Lamictal] Allergy Rash Verified 03/26/21 20:34 Family History Father Heart disease Grandfather Heart disease Surgical History Tubal ligation status Social History Smoking Status: Current every day smoker ROS Constitutional Constitutional: Denies chills, fatigue, fever(s), malaise or weakness Cardiovascular Cardiovascular: Reports as per HPI, chest pain and other; Denies lightheadedness, orthopnea, palpitations or paroxysmal nocturnal dyspnea Respiratory/Chest Respiratory/Chest: Reports other; Denies cough or dyspnea Gastrointestinal Gastrointestinal: Denies abdominal pain, constipation or diarrhea Genitourinary Genitourinary: Denies burning urination, dysuria, urinary frequency or urinary hesitancy Musculoskeletal Musculoskeletal: Denies arthralgias, back pain, joint pain or myalgias Integumentary Integumentary: Denies rash Neurologic Neurologic: Denies confusion, focal weakness or headache(s) Psychiatric Psychiatric: Reports anxiety; Denies depression Endocrine Endocrinology: Denies cold intolerance, excessive sweating or polyuria Hematologic/Lymphatic Hematologic/Lymphatic: Denies easy bleeding or easy bruising Allergic/Immunologic Allergic/Immunologic: Denies tongue swelling or urticaria Physical Exam Resp normal respiratory effort and clear to auscultation bilaterally Auscultation: Negative for crackles, rales or wheezes Cardio regular rate, regular rhythm, S1 normal heart sound, S2 normal heart sound, no murmurs, no rub, no gallops, no clicks, no JVD and peripheral pulses 2+ throug hout GI normal to inspection, nondistended, normoactive bowel sounds Extremity no clubbing, cyanosis or edema and no pedal edema Neuro oriented x3 Lab / Micro Data Result Diagrams: 03/26/21 20:20 03/26/21 20:20 Labs: Laboratory Results - last 24 hr 03/26/21 03/26/21 03/26/21 20:20 20:20 20:20 WBC 11.3 H RBC 3.86 L Hgb 11.9 L Hct 35.8 L MCV 92.7 MCH 30.8 MCHC 33.2 RDW Std Deviation 48.3 H RDW Coeff of Jhonathan 14.2 Plt Count 315 MPV 10.1 Immature Gran % (Auto) 0.300 Neut % (Auto) 59.4 Lymph % (Auto) 32.4 Cache % (Auto) 5.6 Eos % (Auto) 1.9 Baso % (Auto) 0.4 Absolute Neuts (auto) 6.7 Absolute Lymphs (auto) 3.67 Nucleated RBC % 0 D-Dimer Quant (PE/DVT) 0.35 Sodium 138 Potassium 3.6 Chloride 110 H Carbon Dioxide 22.0 Anion Gap 6 BUN 15 Creatinine 0.84 Estim Creat Clear Calc 79.18 Est GFR (MDRD) Af Amer 97 Est GFR (MDRD) Non-Af 80 BUN/Creatinine Ratio 17.8 Glucose 96 Calcium 8.7 Troponin I < 0.015 Triglycerides Cholesterol LDL Cholesterol VLDL Cholesterol HDL Cholesterol 03/27/21 03/27/21 03/27/21 00:05 02:15 02:15 WBC RBC Hgb Hct MCV MCH MCHC RDW Std Deviation RDW Coeff of Jhonathan Plt Count MPV Immature Gran % (Auto) Neut % (Auto) Lymph % (Auto) Cache % (Auto) Eos % (Auto) Baso % (Auto) Absolute Neuts (auto) Absolute Lymphs (auto) Nucleated RBC % D-Dimer Quant (PE/DVT) Sodium Potassium Chloride Carbon Dioxide Anion Gap BUN Creatinine Estim Creat Clear Calc Est GFR (MDRD) Af Amer Est GFR (MDRD) Non-Af BUN/Creatinine Ratio Glucose Calcium Troponin I < 0.015 < 0.015 Triglycerides 146 Cholesterol 202 H LDL Cholesterol 141 H VLDL Cholesterol 29 HDL Cholesterol 32 L Radiology Impression Chest X-Ray 03/26/21 20:43 IMPRESSION: Normal x-ray examination of the chest. Electronically Signed: Rinku Sanchez DO at 21:38 EDT Tel [phone], Service support , Cardiology Labs/Tests Cardiology Labs/Tests: 03/26/21 20:20: WBC 11.3 H, RBC 3.86 L, Hgb 11.9 L, Hct 35.8 L, MCV 92.7, MCH 30.8, MCHC 33.2, Plt Count 315, MPV 10.1, Immature Gran % (Auto) 0.300, Neut % (Auto) 59.4, Lymph % (Auto) 32.4, Cache % (Auto) 5.6, Eos % (Auto) 1.9, Baso % (Auto) 0.4, Absolute Neuts (auto) 6.7, Nucleated RBC % 0 03/26/21 20:20: Sodium 138, Potassium 3.6, Chloride 110 H, Carbon Dioxide 22.0, Anion Gap 6, BUN 15, Creatinine 0.84, Est GFR (MDRD) Af Amer 97, Est GFR (MDRD) Non-Af 80, BUN/Creatinine Ratio 17.8, Glucose 96, Calcium 8.7, Troponin I < 0.015 03/26/21 20:20: D-Dimer Quant (PE/DVT) 0.35 03/27/21 00:05: Troponin I < 0.015 03/27/21 02:15: Triglycerides 146, Cholesterol 202 H, LDL Cholesterol 141 H, VLDL Cholesterol 29, HDL Cholesterol 32 L 03/27/21 02:15: Troponin I < 0.015 Rhythm: Rhythm is normal sinus EKG: Normal sinus rhythm, no significant ST-T abnormalities noted Stress Test: Patient has very little distal function, walking treadmill for 8 minutes achieved target heart rate with no significant ST depression Appears to be attenuation artifact in the anterior however cannot exclude ischemia.
--- NOTE | 2021-03-27 14:27 | PCM.DC.SUM ---
Providers Date of Admission: 03/26/21 Primary Care Physician: Dr. Isrrael Nunes DO Reason For Visit: CHEST PAIN Diagnosis Discharge Diagnosis (1) Chest pain: Status: Acute Code(s): R07.9 - Chest pain, unspecified Qualifiers: Chest pain type: intercostal pain Qualified Code(s): R07.82 - Intercostal pain (2) Anxiety: Status: Acute Code(s): F41.9 - Anxiety disorder, unspecified (3) Tobacco abuse: Status: Acute Code(s): Z72.0 - Tobacco use (4) Obesity: Status: Acute Code(s): E66.9 - Obesity, unspecified Qualifiers: Obesity type: unspecified obesity type Obesity classification: adult class 3 (BMI >= 40) Serious obesity comorbidity presence: without serious comorbidity Body mass index: BMI 40.0-44.9 Qualified Code(s): E66.01 - Morbid (severe) obesity due to excess calories; Z68.41 - Body mass index [BMI]40.0-44.9, adult Medications at Discharge Home Medications citalopram 40 mg PO DAILY 12/02/18 nitrofurantoin monohyd/m-cryst 100 mg PO BID 03/26/21 spironolactone 50 mg PO DAILY 03/26/21 topiramate 50 mg PO BID 03/26/21 Hospital Course Operations None Procedures None Summary of Care Provided Hospital Course: Presents with chest pain. Lasted for several hours. Went to her right shoulder. Seen by cardiology and felt to be musculosketal pain and no further work up needed. Patient to be discharged home. Physical Exam Const alert General Appearance: cooperative Resp normal respiratory effort and clear to auscultation bilaterally Cardio regular rate, regular rhythm, S1 normal heart sound and S2 normal heart sound GI normal to inspection, nondistended, normoactive bowel sounds ABG / Lab / Microbiology Data Result Diagrams: 03/26/21 20:20 03/26/21 20:20 Laboratory: Laboratory Results - last 24 hr 03/26/21 03/26/21 03/26/21 20:20 20:20 20:20 WBC 11.3 H RBC 3.86 L Hgb 11.9 L Hct 35.8 L MCV 92.7 MCH 30.8 MCHC 33.2 RDW Std Deviation 48.3 H RDW Coeff of Jhonathan 14.2 Plt Count 315 MPV 10.1 Immature Gran % (Auto) 0.300 Neut % (Auto) 59.4 Lymph % (Auto) 32.4 [place] % (Auto) 5.6 Eos % (Auto) 1.9 Baso % (Auto) 0.4 Absolute Neuts (auto) 6.7 Absolute Lymphs (auto) 3.67 Nucleated RBC % 0 D-Dimer Quant (PE/DVT) 0.35 Sodium 138 Potassium 3.6 Chloride 110 H Carbon Dioxide 22.0 Anion Gap 6 BUN 15 Creatinine 0.84 Estim Creat Clear Calc 79.18 Est GFR (MDRD) Af Amer 97 Est GFR (MDRD) Non-Af 80 BUN/Creatinine Ratio 17.8 Glucose 96 Calcium 8.7 Troponin I < 0.015 Triglycerides Cholesterol LDL Cholesterol VLDL Cholesterol HDL Cholesterol 03/27/21 03/27/21 03/27/21 00:05 02:15 02:15 WBC RBC Hgb Hct MCV MCH MCHC RDW Std Deviation RDW Coeff of Jhonathan Plt Count MPV Immature Gran % (Auto) Neut % (Auto) Lymph % (Auto) [place] % (Auto) Eos % (Auto) Baso % (Auto) Absolute Neuts (auto) Absolute Lymphs (auto) Nucleated RBC % D-Dimer Quant (PE/DVT) Sodium Potassium Chloride Carbon Dioxide Anion Gap BUN Creatinine Estim Creat Clear Calc Est GFR (MDRD) Af Amer Est GFR (MDRD) Non-Af BUN/Creatinine Ratio Glucose Calcium Troponin I < 0.015 < 0.015 Triglycerides 146 Cholesterol 202 H LDL Cholesterol 141 H VLDL Cholesterol 29 HDL Cholesterol 32 L Radiography Diagnostic Testing: Radiology Impression Chest X-Ray 03/26/21 20:43 IMPRESSION: Normal x-ray examination of the chest. Electronically Signed: Rinku Sanchez DO at 21:38 EDT Tel [phone], Service support , D/C Instructions Discharge Diet: No restrictions Please follow up with your Primary Care Physician in: 1-2 weeks Meaningful Use Info Meaningful Use Diagnoses (Choose all that apply): None applicable Discharge Plan Admission Admit Date/Time: 03/26/21 22:51 Attending Provider: Frankie Laird Primary Care Provider: Isrrael Nunes Instructions Patient Instructions: ED Chest Pain, Noncardiac Discharge Orders/Prescriptions Prescriptions: Continued citalopram 20 MG tablet 40 mg PO DAILY RF: 0 topiramate 25 mg tablet 50 mg PO BID RF: 0 spironolactone 50 mg tablet 50 mg PO DAILY RF: 0 nitrofurantoin monohyd/m-cryst 100 mg capsule 100 mg PO BID RF: 0 Referrals: Isrrael Nunes DO [Primary Care Provider] - In 1 Week Disposition Patient Disposition: Home, self care
--- NOTE | 2021-03-27 23:54 | EKG12_ITS ---
Test Reason : CP ADMISSION Blood Pressure : / mmHG Vent. Rate : 066 BPM Atrial Rate : 066 BPM P-R Int : 154 ms QRS Dur : 086 ms QT Int : 446 ms P-R-T Axes : 055 016 068 degrees QTc Int : 467 ms Normal sinus rhythm Normal ECG Confirmed by REID DUMONT, RENETTA ([id number]), tape editor ARSH LLANOS ([id number]) on 03/28/2021 9:23:33 AM Referred By: FELIPA Confirmed By:RENETTA MATHEWS MD
== END 2021-03-27 14:32 | disposition home or self-care (01) ==
LOC: ED 21:24 → PCU 23:00
PROVIDERS: Admitting Provider Hospitalist; Emergency Provider Emergency Medicine; PCP Family Medicine; Visit Provider Hospitalist
DX: R07.2 Precordial pain (principal); F41.9 Anxiety disorder, unspecified; E66.01 Morbid (severe) obesity due to excess calories; Z68.41 Body mass index [BMI] 40.0-44.9, adult; Z79.899 Other long term (current) drug therapy; F17.200 Nicotine dependence, unspecified, uncomplicated; R94.31 Abnormal electrocardiogram [ECG] [EKG]; F32.9 Major depressive disorder, single episode, unspecified; R11.0 Nausea
CPT/HCPCS: 71045; 78452; 80048; 80061; 84484; 85025; 85379; 93005; 93017; 99218; 99285; A9500; A4216; G0378

== ENCOUNTER 2024-02-25 07:01 | Day surgery (SDC) | payer OTHER, SELFPAY ==
--- NOTE | 2024-02-24 09:23 | PCM.HP.BLA ---
History and Physical Date of Admission: 02/25/24 Pre-Op History and Physical ? HPI: The patient is a 38 year old female presenting for pre-operative visit. She is scheduled for hysteroscopy, D&C, Polypectomy and Endometrial Ablation, for AUB, Endometrial Polyp on 02/25/24. Procedure discussed along with risks, benefits and complications. Other alternatives discussed for management. Consent form signed? Yes. ? ? PAST MEDICAL HISTORY PAST MEDICAL HISTORY Diagnosis Date ? Anxiety state, unspecified ? ? Blood in stool ? ? Diarrhea ? ? Other and unspecified ovarian cyst ? ? Other forms of migraine ? ? Psychiatric disorder ? ? bipolar ? Unspecified asthma(493.90) ? ? Unspecified constipation ? ? ? PAST SURGICAL HISTORY PAST SURGICAL HISTORY Procedure Laterality Date ? COLONOSCOPY FLX DX W/COLLJ SPEC WHEN PFRMD ? 05/28/2012 ? Colonoscopy ? LIG/TRNSXJ FLP TUBE ABDL/VAG APPR UNI/BI ? 02/2011 ? Tubal ligation ? MYRINGOTOMY ASPIR&/EUSTACHIAN TUBE NFLTJ ANES ? ? ? Myringotomy/tubes ? ? ? CURRENT MEDICATIONS Current Outpatient Medications Medication Sig Dispense Refill ? benzonatate (TESSALON PERLES) 100 mg capsule Take 1 capsule by mouth three times a day as needed for cough. (Patient not taking: Reported on 02/02/2024) 21 capsule 0 ? predniSONE (DELTASONE) 10 mg tablet Take 4 tabs daily for 3 days, then 2 tabs daily for 3 days, then 1 tab daily for 3 days with food. (Patient not taking: Reported on 02/02/2024) 21 tablet 0 ? topiramate (TOPAMAX) 100 mg tablet Take 100 mg by mouth. ? ? ? albuterol HFA (PROVENTIL HFA, VENTOLIN HFA) 90 mcg/actuation inhaler Inhale 2 Puffs as instructed every 6 hours as needed for wheezing/shortness of breath. 8 g 0 ? ondansetron orally disintegrating (ZOFRAN ODT) 4 mg disintegrating tablet Take 1 tablet by mouth every 6 hours as needed for nausea/vomiting. 20 tablet 0 ? vitamin B complex (SUPER B COMPLEX ORAL) Take by mouth. ? ? ? spironolactone (ALDACTONE) 50 mg tablet Take by mouth. ? ? ? No current facility-administered medications for this visit. ? ? ALLERGIES: Ciprofloxacin, Aspirin, and Lamictal [Lamotrigine] ? PERSONAL HISTORY: SOCIAL HISTORY Social History ? Tobacco Use ? Smoking status: Every Day ? ? Packs/day: 1.00 ? ? Years: 6.00 ? ? Additional pack years: 0.00 ? ? Total pack years: 6.00 ? ? Types: Cigarettes ? Smokeless tobacco: Never Vaping Use ? Vaping Use: Never used Substance Use Topics ? Alcohol use: Yes ? ? Comment: Occasionally ? Drug use: No ? FAMILY HISTORY: FAMILY HISTORY FAMILY HISTORY Problem Relation Age of Onset ? Heart Paternal Grandmother ? ? mitral valve damage S/P repair then replacement ? Lipids Mother ? ? High Cholesterol ? Lipids Father ? ? High Cholesterol ? Cancer Maternal Grandfather ? ? Heart Maternal Grandfather ? ? Thyroid Mother ? ? Alzheimer's Disease Other ? ? Great-Grandmother ? ? REVIEW OF SYMPTOMS: negative except as noted above PHYSICAL EXAMINATION: ? VITALS: Blood pressure 116/72, pulse 86, weight 229 lb (103.9 kg), last menstrual period 02/13/2024. ? GENERAL: The patient is well nourished, well hydrated in no acute distress. , The patient is oriented to time, place, and person. NECK: full range of motion LUNGS: Clear to auscultation bilaterally. no wheezes, rhonchi or rales HEART: Regular rate and rhythm, Normal heart sounds, and No murmurs or gallops ? IMPRESSION: 38yo with AUB, endometrial Polyp ? PLAN: Hysteroscopy, D&C, Polypectomy with symphion and Michelle endometrial ablation ? Pt has been counseled on risks/benefits and alternatives of surgery including but not limited to anesthesia, bleeding, infection, uterine perforation with subsequent injury to pelvic structures including bowel, bladder, ureters and vessels. Pt wishes to proceed with surgery at this time. Reviewed rare but possible thermal injury to Bowel or other pelvic structures with ablation. Discussed if cavity too small will do HTA. ? Pre and post op instructions reviewed ? I have reviewed and updated past medical and surgical history, medications and allergies Emma Page MD Office Visit on 02/23/2024 Office Visit on 02/23/2024 Note viewed by patient
[2024-02-25] VITALS (9 sets, daily range): BP systolic 84–117; BP diastolic 59–77; PULSE 60–75; RESP 16; TEMP 36.3–36.4; O2SAT 91–99; BMI 38.2
[2024-02-25] MEDS: Lactated Ringers 1,000 ML 15 ML IV ×2 (07:43→10:32)
--- NOTE | 2024-02-25 08:55 | EMB_PTH ---
PATIENT: MICHAEL SAMUEL [place] [facility] [place][id number] AGE/SX: 38/F ROOM: RE02/25/[address]: Dr. Emma Baumann, MDDOB: 1985 BED: DIS: 02/25/2024 SPEC #: [id number] RECD: 02/25/24 10:50 STATUS: SOURAV MC #: [id number] BARON: 02/25/24 08:[address]: Emma Baumann DEPT: SURGICAL PATHOLOGY RECD BY: Daniella Woodward ENTERED: 02/25/24 12:39 SP TYPE: ENDOM BX/C OTHR DR: Dr. Isrrael Nunes, Tissues: Endometrium, NOS Procedures: Surgery Specimen Level IV HEADER OPERATION: Hysteroscopy, D&C, possible polypectomy Symphion PRE-OP DIAGNOSIS: Abnormal uterine bleeding, endometrial polyp TISSUE SUBMITTED: Endometrial polyps and endometrial Curettings MICROSCOPIC DIAGNOSIS Endometrial Curettings and polyps; Polypoid fragments of simple hyperplasia without atypia. Chronic endometritis. Benign fragments of myometrium. CAROL/ 02/26/24 COMMENT Case has been reviewed in consultation with Dr. Lowery who concurs with the above diagnosis. IDC:DENISE MICROSCOPIC DESCRIPTION Slides are reviewed. GROSS DESCRIPTION Received in fixative is one container labeled with the patient's name and designated Endometrial polyps and endometrial Curettings. The specimen consists of multiple irregular fragments of graham-pink soft tissue that in aggregate measure 3.0 x 5.0 x 0.3 cm. The entire specimen is submitted in two cassettes. DENISE/ 02/25/2024 TC:5 CPT: 64644
--- NOTE | 2024-02-25 09:15 | OP.PCM_ITS ---
Report of Operation Date of Procedure: 02/25/24 Pre-Operative Diagnosis: AUB, Endometrial Polyp Post-Operative Diagnosis: Same Surgery/Procedure Performed:: Hysteroscopy, D&C, Polypectomy, Michelle endometrial Ablation Description of Surgical Findings:: Polypoid appearing tissue at uterine fundus and right tubal ostia Surgeon: Emma Page psychological science professor: None (carlos kidd MS3) Type of Anesthesia: MAC Specimen's removed: endometrial polyps and endometrial curettings Estimated Blood Loss (mL): <5cc Fluids Replaced: 800cc Description of Procedure: After informed consent was obtained patient taken to the operating room she is placed in supine position she is given anesthesia simply self insert she is prepped draped normal sterile fashion. Bladder was drained prior to the start of the procedure. At this time the weighted speculum was placed the posterior fornix of the vagina then a single-tooth tenaculum was used to grasp the anterior lip of the cervix. At this time the uterus was sounded to approximately 10 cm the endocervical canal sounded to 4.5cm. Next cervix was dilated in incremental fashion. Once adequate dilatation was achieved the hysteroscope was inserted using normal saline as distention medium. On hysteroscopy there was polypoid tissue at uterine fundus and near right tubal ostia. Both tubal ostia were visualized. At this time symphion resecting device was used to perform polypectomy and endometrial curettage, making sure to not breach the cavity- the tissue will be sent to pathology for evaluation. At this time the Michelle device was opened. The Michelle was set at 5.5cm. The device was activated. Prior to activation the field test was performed and cavity was intact. The device was then fired and activated for 120 seconds. Once the 120 seconds was completed the device was removed intact and the tenaculum was removed. Good hemostasis was appreciated. Weighted speculum was removed. Vaginal sweep was performed is negative. There were no complications. Anticipated normal postoperative course for this patient. Instrument and lap count were correct ?2. Grafts/Implants Used: none Procedure Start Time: 08:53 Procedure Stop Time: 09:15 Complications none Admit VTE Documentation VTE Present on Admission: Yes VTE Mechan Device Prophylaxis: SCD's VTE Pharm Prophylaxis ordered?: No Reason prophylaxis not ordered:: Procedure Not Indicated
--- NOTE | 2024-02-25 09:19 | DCINST_ITS ---
Discharge Instructions Diet Discharge Diet: No restrictions Activity May resume sexual activity in: 1 week Dressing / Incision Call your doctor if you observe: Fever of 101 or Higher, Inability to urinate, Using more than 1 pad per hour and Uncontrolled pain Follow Up Care Please Follow Up With: Emma Page MD When: 1-2 weeks post OP if you need an appointment please call [phone] Test Results: Test results from this visit will be discussed in further detail at your follow- up appointment, if applicable. Discharge Plan Admission Attending Provider: Emma Page Primary Care Provider: Isrrael Nunes Discharge Orders/Prescriptions Prescriptions: No Action topiramate 25 mg tablet 100 mg PO BID B-complex with vitamin C Tablet 1 tab PO DAILY Excedrin Extra Strength 250-250-65 mg tablet 1 tab PO Q6H PRN (Reason: headache) Referrals / Follow Up: Isrrael Nunes DO [Primary Care Provider] - Disposition Disposition (needs filled in before D/C Order can be placed): Home, Self Care
[2024-02-25] MEDS: Oxycodone/Apap 5/325 Tablet PO (10:53)
== END 2024-02-25 11:40 | disposition home or self-care (01) ==
LOC: SDC 07:05 → AC 07:07
PROVIDERS: PCP Family Medicine; Referring Provider Obstetrics & Gynecology; Visit Provider Obstetrics & Gynecology
PROC: 0UB98ZZ Excision of Uterus, Via Natural or Artificial Opening Endoscopic (ICD-10-PCS; CPT 58558; principal; 2024-02-25 08:40)
DX: N85.01 Benign endometrial hyperplasia (principal); F31.9 Bipolar disorder, unspecified; J45.909 Unspecified asthma, uncomplicated; F41.9 Anxiety disorder, unspecified; F17.210 Nicotine dependence, cigarettes, uncomplicated; Z79.82 Long term (current) use of aspirin; Z79.899 Other long term (current) drug therapy
CPT/HCPCS: 58563; 00952; 88305; J7120; J2405

== ENCOUNTER 2024-04-07 05:06 | Day surgery (SDC) | payer OTHER, SELFPAY ==
--- NOTE | 2024-03-31 06:47 | EKG12_ITS ---
Test Reason : PRE OP Blood Pressure : / mmHG Vent. Rate : 079 BPM Atrial Rate : 079 BPM P-R Int : 142 ms QRS Dur : 082 ms QT Int : 386 ms P-R-T Axes : 056 008 065 degrees QTc Int : 442 ms Normal sinus rhythm Normal ECG Confirmed by JOSEFINA DUMONT, PALMA ([id number]), editor news BRAYAN BAI ([id number]) on 04/01/2024 9:46:38 AM Referred By: Emma Page Confirmed By:PALMA ROCHA MD
[2024-03-31 07:26] LABS: Hemoglobin 12.2 g/dL (12.0-15.0); Mean Corp Hgb Conc 33.9 g/dL (32-36); Mean Corpuscular Hgb 31.9 pg (27.0-32.0); Mean Corpuscular Volume 94.2 fL (81-99); Mean Platelet Vol. 10.3 fl (6.2-12.0); Platelet Count 254 K/mm3 (150-450); RBC Distribution Width CV 13.2 % (11.6-14.6); RBC Distribution Width SD 45.3 fl (35.1-43.9); Red Blood Count 3.82 M/mm3 (4.2-5.4); White Blood Count 7.8 K/mm3 (4.4-11.0)
[2024-03-31 07:45] LABS: Magnesium 2.3 mg/dL (1.6-2.6)
--- NOTE | 2024-04-06 16:44 | HP.PCM.OB_ITS ---
History and Physical Date of Admission: 04/07/24 Pre-Op History and Physical HPI: The patient is a 38 year old female presenting for pre-operative visit. She is scheduled for TLH, Bilateral salpingectomy, CYSTO, for AUB, endometrial hyperplasia on 04/07/2024. Procedure discussed along with risks, benefits and complications. Other alternatives discussed for management. Consent form signed? Yes. PAST MEDICAL HISTORY PAST MEDICAL HISTORY Diagnosis Date ? Anxiety state, unspecified ? Blood in stool ? Diarrhea ? Other and unspecified ovarian cyst ? Other forms of migraine ? Psychiatric disorder bipolar ? Unspecified asthma(493.90) ? Unspecified constipation PAST SURGICAL HISTORY PAST SURGICAL HISTORY Procedure Laterality Date ? COLONOSCOPY FLX DX W/COLLJ SPEC WHEN PFRMD 05/28/2012 Colonoscopy ? D&C, DIAG AND/OR THERAPEUTIC 02/25/2024 Hysteroscopy, D&C, Polypectomy, Michelle endometrial ablation ? LIG/TRNSXJ FLP TUBE ABDL/VAG APPR UNI/BI 02/28/2011 Tubal ligation ? MYRINGOTOMY ASPIR&/EUSTACHIAN TUBE NFLTJ ANES Myringotomy/tubes CURRENT MEDICATIONS Current Outpatient Medications Medication Sig Dispense Refill ? topiramate (TOPAMAX) 100 mg tablet Take 100 mg by mouth. ? vitamin B complex (SUPER B COMPLEX ORAL) Take by mouth. No current facility-administered medications for this visit. ALLERGIES: Ciprofloxacin, Aspirin, and Lamictal [Lamotrigine] PERSONAL HISTORY: SOCIAL HISTORY Social History Tobacco Use ? Smoking status: Every Day Packs/day: 1.00 Years: 6.00 Additional pack years: 0.00 Total pack years: 6.00 Types: Cigarettes ? Smokeless tobacco: Never Vaping Use ? Vaping Use: Never used Substance Use Topics ? Alcohol use: Yes Comment: Occasionally ? Drug use: No FAMILY HISTORY: FAMILY HISTORY FAMILY HISTORY Problem Relation Age of Onset ? Heart Paternal Grandmother mitral valve damage S/P repair then replacement ? Lipids Mother High Cholesterol ? Lipids Father High Cholesterol ? Cancer Maternal Grandfather ? Heart Maternal Grandfather ? Thyroid Mother ? Alzheimer's Disease Other Great-Grandmother REVIEW OF SYMPTOMS: negative except as noted above PHYSICAL EXAMINATION: VITALS: Blood pressure 118/78, pulse 85, weight 233 lb (105.7 kg), last m enstrual period 03/08/2024, SpO2 99%. GENERAL: The patient is well nourished, well hydrated in no acute distress. , The patient is oriented to time, place, and person. NECK: full range of motion LUNGS: Clear to auscultation bilaterally. no wheezes, rhonchi or rales HEART: Regular rate and rhythm, Normal heart sounds, and No murmurs or gallops IMPRESSION: Endometrial hyperplasia, AUB PLAN: TLH, Bilateral salpingectomy, Cystoscopy Pt has been counseled on risks/benefits and alternatives of surgery including but not limited to anesthesia, bleeding, infection, injury to pelvic structures including bowel, bladder, ureters and vessels. Pt wishes to proceed with surgery at this time. Risk of transfusion reviewed. Pre and post op instructions reviewed I have reviewed and updated past medical and surgical history, medications and allergies Emma Page MD
[2024-04-07] VITALS (9 sets, daily range): BP systolic 96–117; BP diastolic 62–81; PULSE 61–90; RESP 14–16; TEMP 36.1–36.9; O2SAT 95–100; BMI 37.9
[2024-04-07 06:15] LABS: Bedside Glucose 103 mg/dL (74-106)
[2024-04-07] MEDS: Lactated Ringers 1,000 ML 40 ML IV (06:16)
[2024-04-07] MEDS: Magnesium 1 GM over 15 mins IV (06:16)
[2024-04-07] MEDS: Scopolamine 1mg/72hr Patch 1 PATCH TD (06:18)
[2024-04-07] MEDS: Celecoxib 200 MG Capsule 400 MG PO (06:18)
[2024-04-07] MEDS: Gabapentin 600 MG Tablet PO (06:18)
[2024-04-07] MEDS: dexAMETHasone 4 MG/ML Vial 8 MG IV (06:18)
[2024-04-07] MEDS: Acetaminophen 500 MG Tablet 1000 MG PO (06:18)
[2024-04-07] MEDS: Enoxaparin 40 MG/0.4 ML Syringe SC (06:19)
--- NOTE | 2024-04-07 07:30 | HYST_PTH ---
PATIENT: MICHAEL SAMUEL [place] [facility] [id number] AGE/SX: 38/F ROOM: RE04/07/[address]: Dr. Emma Baumann, MDDOB: 1985 BED: DIS: 04/07/2024 SPEC #: [id number] RECD: 04/07/24 10:11 STATUS: SOURAV JESUSITA #: [id number] BARON: 04/07/24 07:[address]: Emma Baumann DEPT: SURGICAL PATHOLOGY RECD BY: Tyler Thurman ENTERED: 04/07/24 10:35 SP TYPE: HYSTERECT OTHR DR: Dr. Isrrael Nunes DO Tissues: Uterus, NOS Procedures: Surgery Specimen Level V HEADER OPERATION: ERAS, hysterectomy, TLH, bilateral salpingectomy, cystoscopy PRE-OP DIAGNOSIS: Endometrial hyperplasia, abnormal uterine bleeding TISSUE SUBMITTED: Uterus, cervix, bilateral fallopian tubes MICROSCOPIC DIAGNOSIS Uterus, cervix, bilateral fallopian tubes, hysterectomy and bilateral salpingectomy: Cervix - Chronic cystic serositis Endometrium - Extensive area of infarction with focal area of proliferative endometrium. - Negative for hyperplasia. Myometrium - No pathologic diagnosis. Bilateral fallopian tubes- No pathologic diagnosis. See comment. DENISE/ 04/08/24 COMMENT Most of the endometrium is denuded from the underlying myometrial wall. Please make reference to previous specimen [id number] endometrial curettings and polyp with diagnosis of polypoid fragments of simple hyperplasia without atypia and chronic endometritis and benign fragments of endometrium. Clinical correlation and appropriate follow up are necessary. MICROSCOPIC DESCRIPTION Slides are reviewed. GROSS DESCRIPTION Received in fixative is one container labeled with the patient's name and designated uterus, cervix, bilateral fallopian tubes. The specimen consists of a hysterectomy specimen consisting of uterus, cervix, detached bilateral fallopian tubes. The uterus with cervix weighs 116 gm and measures 9.6 x 8.0 x 4.0 cm. The serosal surface is graham glistening. The ectocervical mucosa is unremarkable. The external os is circular in contour. A filshie clip is noted at the left cornual end which appears intact. The endocervical canal measures 3.5 cm in length and the endocervical mucosa is graham glistening and unremarkable. The triangular endometrial cavity measures 5.0 cm in length and 3.0 cm in width. The endometrium with detached from the underlying uterine wall and measures 0.3 cm in thickness. Sections of the uterine wall do not reveal any mass lesions and measures up to 2.0cm in thickness. The fallopian tubes are not identified as right or left. One of the fallopian tubes measures 6.5cm in length and 0.5cm in diameter. A filshie clip is noted at the proximal end which appears intact. Sections reveal unremarkable cut surfaces. The second fallopian tube is similar in appearance to the first one and received in two pieces and measures 5.0cm in length and 0.6cm in diameter. No flishie clip is identified in this fallopian tube. Button Attaching Machine Operator sections are submitted in 12 cassettes as follows: 1 - anterior cervix, 2 - posterior cervix, 3-5 - anterior uterine wall, 6-10 - posterior uterine wall (entire endometrium is submitted), 11- one fallopian tube with filshe clip, 12- second fallopian tube. SJ: 04/07/24 TC:5 CPT: 48673
[2024-04-07 07:33] LABS: Internal QC Validated? YES +Cl - CLEAR BKGD; Pregnancy, Serum, hCG Quali. NEGATIVE Negative
[2024-04-07] MEDS: Cefazolin 2 GM in 0.9% Normal Saline (100mL Bag) 100 ML IV (07:39)
[2024-04-07] MEDS: Ondansetron 4 MG/2 ML Vial IV (08:00)
[2024-04-07] MEDS: Bupivacaine Mpf 0.5% 30 ML VIAL (09:18)
--- NOTE | 2024-04-07 09:26 | OP.PCM_ITS ---
Report of Operation Date of Procedure: 04/07/24 Pre-Operative Diagnosis: Endometrial Hyperplasia Post-Operative Diagnosis: Same Surgery/Procedure Performed:: TLH, Bilateral salpingectomy, cysto Description of Surgical Findings:: Normal ovaries bilaterally. Bilateral filshie clips noted. Surgeon: Emma Page public relations representative: Suzy Evans public relations representative: lyly reyes [email or web address] Type of Anesthesia: General and Local Special Medications: 0.5% marcaine, Hemoblast Specimen's removed: Uterus, cervix, bilateral tubes Drains: None Estimated Blood Loss (mL): 50cc Fluids Replaced: 1200 Description of Procedure: Patient take to OR and prepped and draped in usual sterile fashion in dorsal lithotomy position with her arms tucked in a neurologically safe and neutral position. The uterus sounded to 8 cm. The account leader uterine manipulator was sutured into place at 3/9:00 position and giles were placed. Attention was turned to the abdomen. All port sites were infiltrated with 0.5% marcaine before the incisions were made. The anterior abdominal wall was tented up with towel clamps and using a direct entry approach a 5 mm intraumbilical port was placed. Intraperitoneal placement was confirmed with the laparoscope and the pneumoperitoneum was created. The patient was placed in Trendelenburg and 5 mm right and left lower quadrant ports were placed under direct visualization. Air seal rapid insufflator was used. The bowel was swept away. Ovaries appeared normal. The mesosalpinx starting at fimbriated end were grasped, clamped, sealed and transected with the Ligasure. Bilateral filshie clips noted. The round ligaments were divided. The anterior peritoneum was dissected down to create the bladder flap with blunt dissection and the LigaSure. The uterine arteries were isolated, clamped, sealed and cut. There was minimal back bleeding from the uterus. Straight bites on uterine artieries performed to drop them off the cuff. The dellineator cup was used as guide to create colpotomy using monopolar tip of ligasure. once specimen was removed attention was turned to vaginal portion. The specimen was handed off. The cuff was closed with interrupted 0-vicryl figure of 8 sutures. Cystoscopy was performed bilateral ureters were visualized with good efflux. bladder was intact. giles replaced and sponge stick placed in vagina. The pneumoperitoneum was recreated and the cuff and pedicles were evaluated. Small bleeding noted from right side- of cuff- monopolar tip used to coagulate after Ureter was identified. Hemoblast was placed over bleeding and pressure held x 2min - excellent hemostasis appreciated. remaining hemoblast was placed over cuff and pedicles. The skin incisions were closed with skin glue and 3-0 monocryl in the LLQ port site. The vaginal sweep was completed by me. Grafts/Implants Used: none Dr. Evans assisted in manipulation of camera, tissue and retraction. No residents available. Grafts/Implants Used: none Procedure Start Time: 08:03 Procedure Stop Time: 09:33 Complications none Admit VTE Documentation VTE Present on Admission: Yes VTE Mechan Device Prophylaxis: SCD's VTE Pharm Prophylaxis ordered?: Yes
--- NOTE | 2024-04-07 09:32 | DCINST_ITS ---
Discharge Instructions Diet Discharge Diet: No restrictions Activity Discharge Activity: May Not Drive (while taking narcotics. may drive when pain controlled. ) and May Shower May shower in (days): 1 May resume sexual activity in: 6-8 weeks Weight Bearing Status: Full weight bearing Lifting Restrictions: 20 Additional Activity Instructions:: NOTHING IN THE VAGINA x 6-8 weeks. Dressing / Incision Call your doctor if your incision/area has: Continuous Slow Oozing, Sudden Increased Bleeding, Increased Pain/ Swelling, Increased Redness, Foul Smelling Discharge and Swelling at the incision site Call your doctor if you observe: Fever of 101 or Higher, Inability to have a bowel movement, Using more than 1 pad per hour and Uncontrolled pain Change Dressing in: leave in place till F/U (you have skin glue over incision sites- do not pick off) Cleanse incision/area with: Soap & Water, Keep Dressing Clean & Dry and - (you may let soap and water run over incision sites and dab dry. ) Follow Up Care Please Follow Up With: Emma Page MD When: 2 weeks as scheduled for post op visit Test Results: Test results from this visit will be discussed in further detail at your follow- up appointment, if applicable. Discharge Plan Admission Attending Provider: Emma Page Primary Care Provider: Isrrael Nunes Discharge Orders/Prescriptions Prescriptions: New oxycodone-acetaminophen 5-325 mg Tablet 1 - 2 tab PO Q6H PRN PRN (Reason: Pain Score 4-10) 5 Days Qty: 10 0RF Continued topiramate 25 mg tablet 100 mg PO BID B-complex with vitamin C Tablet 1 tab PO DAILY Excedrin Extra Strength 250-250-65 mg tablet 1 tab PO Q6H PRN (Reason: headache) Referrals / Follow Up: Isrrael Nunes DO [Primary Care Provider] - Disposition Disposition (needs filled in before D/C Order can be placed): Home, Self Care
[2024-04-07] MEDS: Lactated Ringers @ 70 MLS/HR 70 ML IV (10:00)
[2024-04-07] MEDS: Phenazopyridine 95 MG Tablet 190 MG PO (11:21)
[2024-04-07] MEDS: Oxycodone/Apap 5/325 Tablet PO (12:05)
== END 2024-04-07 13:45 | disposition home or self-care (01) ==
LOC: SDC 05:06 → AC 05:07
PROVIDERS: Anesthesiology; PCP Family Medicine; Referring Provider Obstetrics & Gynecology; Visit Provider Obstetrics & Gynecology
PROC: 0UT94ZZ Resection of Uterus, Percutaneous Endoscopic Approach (ICD-10-PCS; CPT 58571; principal; 2024-04-07 07:10)
DX: N85.01 Benign endometrial hyperplasia (principal); N93.9 Abnormal uterine and vaginal bleeding, unspecified; F17.210 Nicotine dependence, cigarettes, uncomplicated; N72 Inflammatory disease of cervix uteri
CPT/HCPCS: 58571; 00840; 36415; 81025; 82962; 83735; 84703; 85027; 86850; 86900; 86901; 88307; 93005; J7120; J2405; J3475

== ENCOUNTER 2025-02-23 16:32 | Emergency (ER) | payer OTHER, SELFPAY ==
[2025-02-23 16:33] VITALS: BP 159/92; PULSE 81; RESP 16; TEMP 36.6; O2SAT 100; BMI 39.1
--- NOTE | 2025-02-23 17:03 | EKG12_ITS ---
Test Reason : CP Blood Pressure : */* mmHG Vent. Rate : 75 BPM Atrial Rate : 75 BPM P-R Int : 140 ms QRS Dur : 88 ms QT Int : 420 ms P-R-T Axes : 56 12 72 degrees QTcB Int : 469 ms Normal sinus rhythm Nonspecific T wave abnormality Prolonged QT Abnormal ECG Confirmed by PALMA ROCHA MD ([id number]), editor magazine BRAYAN BAI ([id number]) on 02/24/2025 8:21:10 AM Referred By: Confirmed By: PALMA ROCHA MD
--- NOTE | 2025-02-23 17:09 | ED.VIS.CHEST ---
HPI History of Present Illness Chief Complaint: Chest Pain Informant: patient Onset/Context/Timing Onset: Days (Last 2 days intermittently. Over the last couple weeks has had exertional dyspnea.) Activity at onset: gradual Timing: Intermittent Quality: Positive for Pressure Location: Substernal Current Severity: Mild Maximum Severity: Mild Worsened By: Exertion Relieved By: Nothing Associated Symptoms: Positive for Nausea, Diaphoresis and Dyspnea; Negative for Cough, Fever, Lightheadedness, Acid Reflux or Palpitations Narrative Narrative: 39-year-old female smokes a pack of cigarettes a day. History of bipolar, PTSD ADHD migraines. No cardiac history. Patient says she has had intermittent chest pressure last 2 days midsternal. Prior history of benign exactly same. No associated nausea diaphoresis. Pain comes and goes. She has had exertional dyspnea recently. No history of DVT or PE. No history of cardiac disease in her there is family history her dad had a prior OK and 3 cardiac stents. Prior Similar Symptoms: Yes Recent Illness/Hospitalization: No CVD Risk Factors: Negative for Hypertension, Diabetes or Hypercholesterolemia PE Risk Factors: Negative for Recent Travel/Surgery, Recent Immobilization, Prior DVT or PE, Cancer or OCP + Smoking + >/=35 TAD Risk Factors: Negative for Marfan's Syndrome PFSH [facility] Medical History Wears glasses Depression Anxiety Marijuana use Alcohol use Anemia Migraine headache Heartburn Asthma Smoker Cardiology follow-up encounter History of stress test Home Medications ?Medication ?Instructions ?Recorded ?Last Taken ?Type topiramate 25 mg tablet 100 mg PO BID 03/26/21 04/06/24 History B-complex with vitamin C 1 tab PO DAILY 02/19/24 04/06/24 History [id number] 250 1 tab PO Q6H PRN headache 02/19/24 Unknown History mg-250 mg-65 mg tablet (Excedrin Extra Strength) oxycodone-acetaminophen 5 mg-325 1 - 2 tab PO Q6H PRN PRN Pain 04/07/24 Unknown Rx mg tablet Score 4-10 5 days #10 tabs Allergy/AdvReac Type Severity Reaction Status Date / Time ciprofloxacin (From Cipro) Allergy Rash Verified 04/07/24 06:01 lamotrigine (From Lamictal) Allergy Rash Verified 04/07/24 06:01 Family History Father Heart disease Grandfather Heart disease Surgical History History of hysteroscopy Hx of myringotomy Hx of tubal ligation Social History Smoking Status: Current every day smoker tobacco type: cigarettes ROS ROS ED ROS Narrative Denies recent illness. Review of Systems ROS Unobtainable: Denies due to encephalopathy Constitutional Constitutional ED: Denies chills or fever(s) Eyes Eyes: Reports none ENT ENT ED: Denies ear pain Cardiovascular Cardiovascular: Reports chest pain; Denies palpitations or racing heartbeat Respiratory/Chest Respiratory/Chest: Reports dyspnea and dyspnea on exertion; Denies cough Gastrointestinal Gastrointestinal: Reports nausea; Denies abdominal pain Genitourinary Genitourinary ED: Denies dysuria or hematuria Musculoskeletal Musculoskeletal: Denies arthralgias or back pain Integumentary Denies abscess Neurologic Neurologic: Denies headache(s) Psychiatric Psychiatric: Denies anxiety Endocrine Endocrinology: Denies cold intolerance Hematologic/Lymphatic Hematologic/Lymphatic: Denies easy bleeding, easy bruising or lymphadenopathy Allergic/Immunologic Allergic/Immunologic ED: Denies mouth swelling, tongue swelling or urticaria EXAM Physical Exam Narrative Exam Narrative: Well-appearing 39-year-old female. Sitting upright in bed. Vital signs are stable afebrile. Pulse ox 100% on room air no hypoxia. H EENT exam pupils round react light. Mytrex membranes. No facial droop. Neck nontender. No lymphadenopathy. No JVD. Lungs clear to auscultation bilaterally. Heart regular rate and rhythm rate about 80 no murmur. Chest wall and ribs nontender. No ecchymosis or bruising. No reproducible pain. Abdomen soft nontender. Moving all 4 extremities. 5 out of 5 travel consultant strength. Dorsi plantarflexion intact. Palpable equal and symmetrical radial pulses. Palpable DP pulse. Calves are nontender that edema or cords. Back nontender. Neurologically she is awake alert no focal motor deficits. Const Vital Signs: 02/23/25 16:33 02/23/25 17:19 02/23/25 17:19 Temperature 97.8 F Temperature Source Temporal Pulse Rate 81 Respiratory Rate 16 Respiratory Effort Normal Non-Labored Blood Pressure 159/92 H Blood Pressure Mean 114 Pulse Ox 100 Oxygen Delivery Method Room Air Room Air 02/23/25 17:33 02/23/25 18:00 02/23/25 19:00 Temperature Temperature Source Pulse Rate 77 72 72 Respiratory Rate 15 18 16 Respiratory Effort Blood Pressure 120/82 H 121/83 H 111/71 Blood Pressure Mean 94 95 84 Pulse Ox 97 97 97 Oxygen Delivery Method Room Air 02/23/25 20:00 Temperature Temperature Source Pulse Rate 77 Respiratory Rate 16 Respiratory Effort Blood Pressure 111/71 Blood Pressure Mean 84 Pulse Ox 95 Oxygen Delivery Method Room Air Positive well nourished and well developed; Negative for cachectic, contractures or unkempt General Appearance ED: well developed and NAD; Negative for unkempt, cachectic, contractures or pallor Nutritional Appearance: Negative for cachectic HEENT Reports moist mucous membranes normocephalic and atraumatic; Negative for trauma or tenderness Eyes PERRL and EOMs intact bilaterally General Eye ED: Negative for pale conjunctiva or scleral icterus Neck no lymphadenopathy, supple and no JVD General: Negative for tenderness Chest Wall inspection of chest normal and palpation of chest normal Resp normal respiratory effort and clear to auscultation bilaterally Effort and Inspection: Negative for respiratory distress Auscultation: Negative for rales, rhonchi, wheezes or diminished lung sounds Cardio regular rate, regular rhythm, S1 normal heart sound, S2 normal heart sound and no murmurs Peripheral Pulses: pulses 2+ throughout GI normal to inspection, nondistended, normoactive bowel sounds, soft to palpation, non-tender, non-distended and no masses Back/Spine no CVA tenderness and no thoracic nor lumbar tenderness Extremity normal to inspection General Extremety ED: Negative for edema, pulses abnormal or tenderness General Extremity: Negative for edema or pulses abnormal Neuro oriented x3, CN's II-XII intact bilaterally and no sensory deficits noted Sensorium / Orientation: awake, alert, oriented to person, oriented to place and oriented to time; Negative for confused, lethargic or stuporous Motor Exam: strength 5/5 throughout Psych mental status grossly normal Appearance: Negative for unkempt Mood & Affect: Negative for depressed, anxious or tearful Skin no rashes or lesions noted General Skin Exam: Negative for jaundice or pallor Rashes: No rashes noted Trauma: Negative for abrasion Heart Score History: Moderately Suspicious ECG: Normal Age: </= 45 years Risk Factors: 1 or 2 Risk Factors Troponin: </= Normal Limit Score: 2 MDM MDM MDM Narrative Medical decision making narrative: 39-year-old female with chest pressure. Began at rest. She does have some exertional dyspnea is a smoker. There is some family history. She has never had cardiac disease. She had a negative stress test about 4 years ago. Patient undergo cardiac workup. Clinically no history of DVT or PE risk factors. No family history. Patient doing well on repeat exam at 8:35 PM. She has 2 negative troponins. Normal EKG. She is 39 had a recent heart cath about 4 years ago. She prefers to be discharged home with outpatient stress testing for atypical chest pain and exertional dyspnea. I am comfortable that plan. Should follow-up with her primary care physician to get that set up. History & Record Review Discussion w/independent historian: Patient Lab Data Attestation: I reviewed the patient's lab results. Lab results narrative: CBC shows a white count 11. H&H 11.1 and 32. Platelets 250. Electrolytes show gap of 24. BUN of 8 creatinine 0.7. Glucose 72. Troponin less than 6. 2-hour troponin equals less than 6 also. Labs: Laboratory Results - last 24 hr 02/23/25 02/23/25 16:52 19:20 WBC 11.0 RBC 3.49 L Hgb 11.1 L Hct 32.0 L MCV 91.7 MCH 31.8 MCHC 34.7 RDW Std Deviation 44.7 H RDW Coeff of Jhonathan 13.3 Plt Count 250 MPV 10.3 Immature Gran % (Auto) 0.500 Neut % (Auto) 61.3 Lymph % (Auto) 29.7 [place] % (Auto) 6.3 Eos % (Auto) 1.7 Baso % (Auto) 0.5 Absolute Neuts (auto) 6.7 Absolute Lymphs (auto) 3.26 Nucleated RBC % 0 Sodium 137 Potassium 3.5 Chloride 105 Carbon Dioxide 14.4 L Anion Gap 24 H BUN 8 Creatinine 0.70 Estim Creat Clear Calc 125.99 Est GFR (MDRD) Non-Af 111 BUN/Creatinine Ratio 11.3 Glucose 72 Calcium 8.4 Troponin T High Sens < 6 Troponin T Hi Sens 2 Hr < 6 Radiography Chest X-Ray - ED: 2 View, Read by ED Physician, Read by Radiologist, Normal, Heart, Lungs, Mediastinum, Bony Structures, No Acute Disease and Chronic Changes Diagnostic Testing: Clinical Impression(s) from Imaging Studies Chest X-Ray 02/23/25 17:15 IMPRESSION: No evidence of acute disease. Reading Location: [facility] Chest x-ray, 2 views, AP and lateral, interpreted both by myself and the radiologist shows no acute abnormality. Normal cardiac silhouette. Chronic changes. Rhythm Strip Rhythm Strip: Sinus Rhythm Rate: 75 Ectopy: None EKG Initial EKG: Attestation: I personally reviewed and interpreted this EKG as follows: Interpretation: Sinus Rhythm and No Acute Injury Pattern Comments: Normal sinus rhythm rate of 75 no acute signs of OK or ischemia. Discharge Plan Triage Chief Complaint: Chest Pain ED Provider: Dave Rodgers Dx/Rx/DC Orders Clinical Impression: Chest pain Instructions: ED Chest Pain, Uncertain Cause Prescriptions: No Action topiramate 25 mg tablet 100 mg PO BID B-complex with vitamin C Tablet 1 tab PO DAILY Excedrin Extra Strength 250-250-65 mg tablet 1 tab PO Q6H PRN (Reason: headache) oxycodone-acetaminophen 5-325 mg Tablet 1 - 2 tab PO Q6H PRN PRN (Reason: Pain Score 4-10) 5 Days Qty: 10 0RF Primary Care Provider: Sena Alexander Referrals: Sena Alexander MD [Primary Care Provider] - As soon as possible Activity Restrictions/Additional Instructions: All your tests including EKG and chest x-ray along with both heart enzymes were good. Follow-up with your primary care physician to be set up for outpatient stress test. Obviously return or follow-up with the nearest ER if you are feeling worse or have worsening chest pain. Long-term definitely try to quit smoking. Print Language: Nigerian Disposition Disposition: Home, Self Care
--- NOTE | 2025-02-23 17:15 | RAD_ITS ---
PROCEDURE: CHEST PA AND LATERAL 02/23/2025 REASON FOR EXAM: CHEST PAIN TECHNIQUE: PA and lateral views of the chest. COMPARISON: 03/26/2021 FINDINGS: The lungs appear clear. The cardiac and mediastinal contours are within limits. Visualized osseous structures appear within limits. RAD/Chest PA and Lateral IMPRESSION: No evidence of acute disease. Reading Location: [id number]
[2025-02-23 17:25] LABS: Absolute Lymphocyte Count 3.26 X10^3/uL (0.83-4.51); Absolute Neutrophil Count 6.7 X10^3/uL (2.0-7.7); Basophil# 0.06 X10^3/uL; Basophil% 0.5 % (0-1); Eosinophil# 0.19 X10^3/uL; Eosinophils% 1.7 % (0-5); Hemoglobin 11.1 g/dL (12.0-15.0); Lymphocyte # 3.26 X10^3/ul (0.83-4.51); Lymphocyte % 29.7 % (19-41); Mean Corp Hgb Conc 34.7 g/dL (32-36); Mean Corpuscular Hgb 31.8 pg (27.0-32.0); Mean Corpuscular Volume 91.7 fL (81-99); Mean Platelet Vol. 10.3 fl (6.2-12.0); Monocyte# 0.69 X10^3/uL; Monocyte% 6.3 % (0-10); NRBC Flagged by Analyzer 0 % (0-5); Neutrophil # 6.73 X10^3/uL (2.7-7.7); Neutrophil % 61.3 % (47-70); Platelet Count 250 K/mm3 (150-450); RBC Distribution Width CV 13.3 % (11.6-14.6); RBC Distribution Width SD 44.7 fl (35.1-43.9); Red Blood Count 3.49 M/mm3 (4.2-5.4)
[2025-02-23 17:33] VITALS: BP 120/82; PULSE 77; RESP 15; O2SAT 97
[2025-02-23 18:00] VITALS: BP 121/83; PULSE 72; RESP 18; O2SAT 97
[2025-02-23 18:19] LABS: Troponin T High Sensitivity < 6 ng/L (<=14)
[2025-02-23 18:38] LABS: BUN 8 mg/dL (4-19); BUN/Creat Ratio 11.3 RATIO (10-20); Calcium,Total 8.4 mg/dL (7.6-11.0); Chloride 105 mmol/L (98-108); EST Glomerular Filtration Rate 111 (>60); Estimated Creatinine Clearance 125.99 ml/min (50-250); Glucose 72 mg/dL (70-99); Potassium 3.5 mmol/L (3.3-5.1); Sodium Level 137 mmol/L (133-145)
[2025-02-23 18:53] LABS: Anion Gap 24 (5-15)
[2025-02-23 19:00] VITALS: BP 111/71; PULSE 72; RESP 16; O2SAT 97
[2025-02-23 19:02] LABS: Carbon Dioxide 14.4 mmol/L (21.0-32.0)
[2025-02-23 20:00] VITALS: BP 111/71; PULSE 77; RESP 16; O2SAT 95
[2025-02-23 20:21] LABS: Troponin T High Sens 2 HR < 6 ng/L (<=14)
[2025-02-23 20:42] VITALS: BP 111/75; PULSE 76; RESP 16; TEMP 36.6; O2SAT 99
== END 2025-02-23 20:43 | disposition home or self-care (01) ==
PROVIDERS: Emergency Provider Emergency Medicine; PCP Family Medicine; Visit Provider Emergency Medicine
DX: R07.89 Other chest pain (principal); F17.210 Nicotine dependence, cigarettes, uncomplicated; Z82.49 Family history of ischemic heart disease and other diseases of the circulatory system
CPT/HCPCS: 71046; 80048; 84484; 85025; 93005; 99284; A4216